=== PATIENT | male | born 1985 | race Caucasian/White ===

== ENCOUNTER 2016-08-30 14:44 | Emergency (ER) | payer BC ==
[2016-08-30 15:04] VITALS: BP 134/80
--- NOTE | 2016-08-30 15:33 | DR.GENAD ---
HPI - PCP Primary Care Physician: RICHELLE - HPI Comment HPI Comment: PATIENT INJURED KNEE RECENTLY. HAVING PROBLEM WITH KNEE. GIVE WAY ON HIM. HIS POP A LOT. NO NEW INJURY. - Complaint/Symptoms Chief Complaint Doctors Comments: PATIENT IS HAVING RIGHT KNEE PAIN. Chief Complaint:: RIGHT KNEE PAIN. - Nurses notes reviewed Nurses Notes Review: Yes - Source History Provided: Patient - Mode of Arrival Mode of Arrival: Ambulatory - Timing Onset of Chief Complaint: 08/30/16 Came on: Suddenly - Duration Duration: Constant Duration: Days - Severity Severity: Moderate PMH - PMH Past Medical History: No Past Surgical History: No Surgical History: Ortho Surgery - Family History History of Family Medical Conditions: Yes Family Medical History: [place], Coronary Artery Disease, Hypertension - Social History Does patient currently use any type of tobacco product: Yes Have you used tobacco products in the last 12 months: Yes Type of Tobacco Use: Cigarettes Does any household member use tobacco: No Alcohol Use: Occasionally Do you use any recreational Drugs:: No Lives With: Family Lives Where: Home - infectious screening In the last 2 months have you had wt loss of >10#?: NO Have you had fever, night sweats or hemotysis?: No Have you traveled outside the country in the last 6 months?: No Isolation: Standard ROS - Review of Systems Constitutional: No Symptoms Reported Eyes: No Symptoms Reported ENTM: No Symptoms Reported Respiratoy: No Symptoms Reported Cardiovascular: No Symptoms Reported Gastrointestinal/Abdominal: No Symptoms Reported Genitourinary: No Symptoms Reported Neurological: No Symptoms Reported Musculoskeletal: Right, Knee Integumentary: No Symptoms Reported Hematologic/Lymphatic: No Symptoms Reported Endocrine: No Symptoms Reported All Other Systems: Reviewed and Negative PE - Vital Signs Vitals: Temperature 97.6 F Pulse Rate 84 Respiratory Rate 20 Blood Pressure 134/80 O2 Sat by Pulse Oximetry 98 - General Limitations: No Limitations General Appearance: Alert - Head Head Exam: Normal Inspection - ENT Mouth Exam: Normal Inspection Throat Exam: Normal Inspection - Neck Neck Exam: Trachea Midline - Respiratory Respiratory Exam: Normal Lung Sounds Bilat - Cardiovascular Cardiovascular Exam: Regular Rate, Normal Rhythm, Normal Heart Sounds - Abdominal Exam Abdominal Exam: Normal Inspection - Extremities Extremities Exam: Tenderness (AND SWELLING RT KNEE. RIGHT PATELLA LOOSE) - Back Back Exam: Paraspinal Tenderness - Neurologic Neurological Exam: Alert, Oriented X3 - Psychiatric Psychiatric Exam: Normal Affect, Normal Mood - Skin Skin Exam: Normal Color MDM - Differential Diagnosis Differential Diagnosis: KNEE FRACTURE, SPRAIN, STRAIN Course - Treatment Treatment: SEE ORDERS. KATIE BANDAGE APPLIED IN ED. - Education/Counseling Education/Counseling: Patient, Education Educated On: Treatment, Diagnosis, Prognosis, Needs for Follow Up ROR - XRAY XRAY Interpreted by: Radiologist XRAY Findings: REPORT DISCUSS WITH PATIENT. - Diagnosis Discharge Problem: Right knee sprain Qualifiers: Encounter type: initial encounter Involved ligament of knee: unspecified ligament Qualified Code(s): S83.91XA - Sprain of unspecified site of right knee , initial encounter - Discharge Plan Disposition: HOME, SELF-CARE Condition: Stable Prescriptions: Dexamethasone [Decadron Tab] 4 mg PO QAM #7 tab Ibuprofen [Motrin Tab 800 mg] 800 mg PO Q8H PRN #20 tab PRN Reason: Pain/Inflammation - Follow ups/Referrals Follow ups/Referrals: [facility],None [Primary Care Provider] - 3 days - Instructions Instructions: Knee Pain, Knee Sprain
--- NOTE | 2016-08-30 15:45 | RAD ---
HISTORY: Knee Pain. Study: Complete two view series right knee Comparison: None available. Findings: No acute fracture, subluxation, or dislocation is identified. The medial and lateral tibiofemoral c ompartments appear unremarkable without loss of significant joint space. The lateral radiograph camryn ls to demonstrate a visible joint effusion. Patellofemoral compartment is unremarkable in appearanc e. No lytic or bone forming lesions are seen. No high-grade osteochondral defects are observed. No u nexpected radiopaque foreign bodies are seen. There is no evidence for significant degenerative arth rosis. No focal joint erosions are seen, either. IMPRESSION: 1. Negative knee joint exam. Reported By:
[2016-08-30 15:51] VITALS: BMI 33.7
== END 2016-08-30 17:01 | disposition home or self-care (01) ==
LOC: ER 14:59
DX: S83.91XA Sprain of unspecified site of right knee, initial encounter (principal); Y33.XXXA Other specified events, undetermined intent, initial encounter; Y92.9 Unspecified place or not applicable
CPT/HCPCS: 29530; 73560; 99282